=== PATIENT | male | born 1990 | race African-American/Black ===

== ENCOUNTER 2018-07-02 11:43 | Emergency (ER) | payer MEDICAID ==
[~2018-07-02] VITALS: Ht 172.7 cm; Wt 68.0 kg
[2018-07-02] MEDS ORDERED: ONDANSETRON HCL 4 MG/2 ML VIAL IV ONE (12:30)
[2018-07-02] MEDS ORDERED: MORPHINE SULFATE 4 MG/ML SYR/VIAL IV ONE (12:30)
[2018-07-02 13:36] VITALS: BP 132/91
== END 2018-07-02 13:55 | disposition home or self-care (01) ==
LOC: ER 11:47
DX: K59.00 Constipation, unspecified (principal); S31.109D Unspecified open wound of abdominal wall, unspecified quadrant without penetration into peritoneal cavity, subsequent encounter; F17.210 Nicotine dependence, cigarettes, uncomplicated; F12.10 Cannabis abuse, uncomplicated; Z91.013 Allergy to seafood
CPT/HCPCS: 74176; 94761

== ENCOUNTER 2019-12-27 10:23 | Emergency (ER) | payer MEDICAID ==
[~2019-12-27] VITALS: Ht 172.7 cm; Wt 74.8 kg
[2019-12-27 10:40] VITALS: BP 127/88
[2019-12-27] MEDS ORDERED: ACETAMINOPHEN 500 MG TAB PO ONE (11:45)
== END 2019-12-27 12:07 | disposition home or self-care (01) ==
LOC: ER 10:23
DX: S02.2XXA Fracture of nasal bones, initial encounter for closed fracture (principal); F17.210 Nicotine dependence, cigarettes, uncomplicated; Y04.2XXA Assault by strike against or bumped into by another person, initial encounter; Y93.89 Activity, other specified; Y92.89 Other specified places as the place of occurrence of the external cause; Y99.8 Other external cause status
CPT/HCPCS: 70160

== ENCOUNTER 2020-05-26 01:52 | Emergency (ER) | payer MEDICAID ==
[~2020-05-26] VITALS: Ht 175.3 cm; Wt 72.6 kg
[2020-05-26 03:05] LABS: INR 1.03 (0.9-1.15); Partial Thromboplastin Time 28.6 sec (23.0-31.2)
[2020-05-26] MEDS ORDERED: HYDROcodone-ACET 5/325MG TAB PO ONE (04:30)
[2020-05-26 05:20] LABS: Urine Bacteria FEW /hpf (None Seen); Urine Blood TRACE /uL (Negative); Urine Specific Gravity 1.031 (1.001-1.035); Urine WBC 3 /hpf (0 - 3)
[2020-05-26 06:01] VITALS: BP 132/69
== END 2020-05-26 09:03 | disposition home or self-care (01) ==
LOC: EDBD 01:52 → ER 01:52
DX: S30.0XXA Contusion of lower back and pelvis, initial encounter (principal); V29.9XXA Motorcycle rider (driver) (passenger) injured in unspecified traffic accident, initial encounter; Y93.89 Activity, other specified; Y92.89 Other specified places as the place of occurrence of the external cause; Y99.8 Other external cause status
CPT/HCPCS: 36415; 70450; 71045; 72125; 72170; 81001; 85610; 85730; 86850; 86900; 86901

== ENCOUNTER 2024-01-08 07:55 | Emergency (ER) | payer MEDICAID, OTHER ==
[~2024-01-08] VITALS: Ht 175.3 cm; Wt 78.7 kg
--- NOTE | 2024-01-08 08:25 | ED.PDOC ---
General HPI Comments 33 year old male concerned about std c/o dysuria x 1 day Last unprotected sex: 2 days ago. New partner Denies pelvic pain Denies nausea vomiting diarrhea Denies history of UTI Denies blood in the urine or semen Denies recent instruments/toys and urethra Denies current tobacco use Denies family history of prostate issues Chief Complaint: Urinary Time Seen by MD: 08:02 Primary Care Provider: NONE Reviewed notes: Nurses Notes, Medications, Allergies Allergies: Coded Allergies: Fish Allergy (Verified Allergy, Unknown, 01/19/15) Home Meds No Active Prescriptions or Reported Meds Information Source: Patient Mode of Arrival: Ambulatory Past Medical History PAST MEDICAL HISTORY: Denies Surgical History: Denies all surgeries Family History Family History: Reviewed,noncontributory to illness Social History Smoker: Cigarettes, Less Than 1 Pack/Day Alcohol: Occasionally Drugs: Marijuana Lives In: Home All Other Systems: Reviewed and Negative (Per HPI) Physical Exam General Appearance: No Apparent Distress, Normal HEENT: Normal ENT Inspection, Pharynx Normal, TMs Normal Neck: Full Range of Motion, Non-Tender, Normal, Normal Inspection Respiratory: Chest Non-Tender, Lungs Clear, No Accessory Muscle Use, No Respiratory Distress, Normal Breath Sounds Cardiovascular: No Edema, No JVD, No Murmur, No Gallop, Normal Peripheral Pulses, Regular Rate/Rhythm Breast Exam: Deferred Gastrointestinal: No Organomegaly, Non Tender, No Pulsatile Mass, Normal Bowel Sounds, Soft Genitalia: Deferred Pelvic: Deferred Rectal: Deferred Extremities: No calf tenderness, Normal capillary refill, Normal inspection, Normal range of motion, Non-tender, No pedal edema Musculoskeletal : Apperance: Normal Neurologic: Alert, asw specialist II-XII nml as Tested, No Motor Deficits, Normal Affect, Normal Mood, No Sensory Deficits Cerebellar Function: Normal Reflexes: Normal Skin: Dry, Normal Color, Warm Lymphatic: No Adenopathy Was a procedure done? Was a procedure done?: No Differential Diagnosis Kidney stone (Female): Other Urinary Problem (Male): Epididymitis, Prostatitis, Urethritis, UTI X-Ray, Labs, Meds, VS Vital Signs Date Time Temp Pulse Resp B/P (MAP) Pulse Ox O2 Delivery O2 Flow Rate FiO2 01/08/24 09:04 98.5 89 16 122/80 (94) 97 98.5 01/08/24 09:04 89 16 97 Room Air 01/08/24 07:58 99.0 90 20 148/92 (110) 98 Lab Test 01/08/24 08:48 01/08/24 08:06 Range/Units White Blood Count 7.4 4.4-10.8 10^3/uL Red Blood Count 5.32 4.5-5.90 10^6/uL Hemoglobin 17.1 13.5-17.5 g/dL Hematocrit 49.0 41.0-53.0 % Mean Corpuscular Volume 92.0 80.0-100.0 fL Mean Corpuscular Hemoglobin 32.0 28.0-32.0 pg Mean Corpuscular Hemoglobin Concent 34.8 32.0-36.0 g/dL Red Cell Distribution Width 13.3 11.8-14.3 % Platelet Count 298 140-450 10^3/uL Mean Platelet Volume 7.3 6.9-10.8 fL Neutrophils (%) (Auto) 69.9 37.0-80.0 % Lymphocytes (%) (Auto) 20.4 10.0-50.0 % Monocytes (%) (Auto) 8.6 0.0-12.0 % Eosinophils (%) (Auto) 0.7 0.0-7.0 % Basophils (%) (Auto) 0.4 0.0-2.0 % Neutrophils # (Auto) 5.2 1.6-8.6 10 ^3/uL Lymphocytes # (Auto) 1.5 0.4-5.4 10 ^3/uL Monocytes # (Auto) 0.6 0-1.3 10 ^3/uL Eosinophils # (Auto) 0 0-0.8 10 ^3/uL Basophils # (Auto) 0 0-0.2 10 ^3/uL Nucleated Red Blood Cells 0.1 % Sodium Level 141 136-145 mmol/L Potassium Level 4.0 3.5-5.1 mmol/L Chloride Level 104 98-107 mmol/L Carbon Dioxide Level 31 20-31 mmol/L Anion Gap 6 5-15 Blood Urea Nitrogen 12 9-23 mg/dL Creatinine 1.01 0.700-1.30 mg/dL Glomerular Filtration Rate Calc 100 >90 mL/min BUN/Creatinine Ratio 11.9 10.0-20.0 Serum Glucose 82 74-106 mg/dL Calcium Level 10.2 8.7-10.4 mg/dL HIV (1&2) Antibody Pending Urine Color Yellow Yellow Urine Clarity Clear Clear Urine pH 6.5 5.0-9.0 Urine Specific [place] 1.029 1.001-1.035 Urine Protein Negative Negative Urine Ketones Negative Negative Urine Blood Negative Negative /uL Urine Nitrite Negative Negative Urine Bilirubin Negative Negative Urine Urobilinogen Normal Negative mg/dL Urine Leukocyte Esterase Negative Negative /uL Urine RBC 1 0 - 3 /hpf Urine WBC <1 0 - 3 /hpf Urine Squamous Epithelial Cells None seen <5 /hpf Urine Bacteria None seen None Seen /hpf Urine Glucose Normal Normal mg/dL Chlamydia trachomatis ([facility]) Pending Neisseria gonorrhoeae ([facility]) Pending X-Ray, Labs, Meds, VS Comment History and physical exam consistent with either chlamydia gonorrhea urethritis. Based on show decision-making patient agreed to empiric treatment Per CDC guidelines we will treat with Doxy 100 mg twice daily x7 days Notify sex partners and refer them to get tested Advise abstinence from sex x7 days after course completed On reevaluation, patient had symptomatic improvement. Patient is stable for discharge at this time. External notes reviewed. Test results and diagnostic imaging interpreted. All diagnostic findings, discharge care, education and instructions provided Follow-up with PCP in 2 to 3 days Patient verbalized understanding and agreed to treatment plan Vital signs stable, afebrile, no acute distress noted Patient ambulatory with strong steady gait Advised to return precautions for any new or worsening symptoms, return to ER immediately for re-evaluation Patient is aware that the purpose of this visit was for an acute medical emergency requiring emergent stabilization. Chronic conditions, including malignancies have not been ruled out. Patient is instructed to follow up with PCP as directed and discharge instructions for continued care and workup. If unable to arrange follow-up, patient is to return to the emergency department for reassessment. Patient (parent or legal guardian if applicable) was given verbal and written discharge instructions and acknowledges understanding. Time of 1ST Reevaluation: 09:30 Reevaluation 1ST: Improved Patient Education/Counseling: Diagnosis, Treatment Family Education/Counseling: Diagnosis, Treatment Departure 1 Departure Time of Disposition: 09:40 Impression: Primary Impression: Urethritis Disposition: HOME / SELF CARE / HOMELESS Condition: Stable e-Prescriptions Doxycycline Hyclate (DOXYCYCLINE HYCLATE) 100 Mg Tab 1 TAB PO BID for 7 Days, #14 TAB 0 Refills Prov: RENE TURNER NP 01/08/24 Discharged With: Self Critical Care Note Critical Care Time?: No Stability Stability form required: No Heart Score Heart Score: Heart Score Response (Comments) Value History N/A 0 EKG N/A 0 Age N/A 0 Risk Factors N/A 0 Troponin N/A 0 Total 0 RENE TURNER NP Jan 08, 2024 08:25
[2024-01-08 08:54] LABS: Urine Bacteria None Seen /hpf (None Seen)
[2024-01-08 09:04] VITALS: BP 122/80; PULSE 89; RESP 16; TEMP 98.5; O2SAT 97
[2024-01-08 09:15] LABS: Basophils # (auto) 0 10 ^3/uL (0-0.2); Basophils % (auto) 0.4 % (0.0-2.0); Eosinophils # (auto) 0 10 ^3/uL (0-0.8); Eosinophils % (auto) 0.7 % (0.0-7.0); Hemoglobin 17.1 g/dL (13.5-17.5); Lymphocytes # (auto) 1.5 10 ^3/uL (0.4-5.4); Lymphocytes % (auto) 20.4 % (10.0-50.0); Mean Corpuscular Hgb Conc. 34.8 g/dL (32.0-36.0); Monocytes # (auto) 0.6 10 ^3/uL (0-1.3); Monocytes % (auto) 8.6 % (0.0-12.0); Neutrophils # (auto) 5.2 10 ^3/uL (1.6-8.6); Neutrophils % (auto) 69.9 % (37.0-80.0); Nucleated Red Blood Cells % 0.1 %; Platelet Count (auto) 298 10^3/uL (140-450); Red Blood Cells 5.32 10^6/uL (4.5-5.90); Red Cell Distribution Width 13.3 % (11.8-14.3); White Blood Cell 7.4 10^3/uL (4.4-10.8)
[2024-01-08 09:21] LABS: Urine Blood Negative /uL (Negative); Urine Clarity Clear (Clear); Urine Color Yellow (Yellow); Urine Protein, UAD Negative (Negative); Urine Specific Gravity 1.029 (1.001-1.035); Urine Urobilinogen Normal (Negative); Urine WBC <1 /hpf (0 - 3); Urine pH 6.5 (5.0-9.0)
[2024-01-08 09:24] LABS: Chloride 104 mmol/L (98-107); Sodium 141 mmol/L (136-145)
[2024-01-08 09:25] LABS: Anion Gap 6 (5-15); Carbon Dioxide 31 mmol/L (20-31)
[2024-01-08 09:26] LABS: Calcium 10.2 mg/dL (8.7-10.4)
[2024-01-08 09:30] LABS: BUN/Creatinine Ratio 11.9 (10.0-20.0); Blood Urea Nitrogen 12 mg/dL (9-23); Glucose 82 mg/dL (74-106)
[2024-01-08] MEDS: cefTRIAXone SOD 1,000 MG VL IM ONE (09:38)
[2024-01-08] MEDS ORDERED: DOXY-286 PO (09:41)
[2024-01-10 03:06] LABS: Chlamydia Trachomatis, NAA Negative (Negative); Neisseria gonorrhoeae, NAA Negative (Negative)
== END 2024-01-08 09:47 | disposition home or self-care (01) ==
LOC: ER 07:55
DX: N34.2 Other urethritis (principal); F17.210 Nicotine dependence, cigarettes, uncomplicated; F15.90 Other stimulant use, unspecified, uncomplicated; Z91.013 Allergy to seafood
CPT/HCPCS: 36415; 80048; 81001; 85025; 86703; 87491; 87591; 96372; 99283; J0696